=== PATIENT | male | born 1965 | race Caucasian/White ===

== ENCOUNTER 2022-02-28 11:17 | Emergency (ER) | payer OTHER ==
[~2022-02-28] VITALS: Ht 180.3 cm; Wt 122.5 kg
[2022-02-28] MEDS ORDERED: HYDROCHLOROTH12.5 MG PO (11:57)
== END 2022-02-28 15:48 | disposition home or self-care (01) ==
LOC: ER 11:17
DX: M54.31 Sciatica, right side (principal)